=== PATIENT | female | born 1955 | race Caucasian/White ===

== ENCOUNTER 2016-08-30 11:37 | Day surgery (SDC) | payer BC ==
--- NOTE | ~2016-08-30 | EGD ---
EGD REPORT [facility] [address] [address] NAME: ALISON PEREZ : 53 STATUS : REG [facility] PAT#: [id number] AGE: 61 ADM/REG DATE : 08/30/16 MR#: [id number] REPORT SERV DATE: 08/30/16 DICTATED BY: ALICIA WOOD DATE: 08/30/16 REPORT STATUS : Draft TRANSCRIBED BY: [facility] DATE: 08/30/16 [facility] Patient Name: Alison Perez Date of : 1955 Attending MD: ALICIA WOOD MD Procedure Date No Time: 08/30/2016 Procedure: Upper GI endoscopy Indications: Dysphagia, Chest pain (non cardiac) Referring MD: Zeb Cobos MD, GEORGIA HANLEY III, MD, JOHN BOWER Medicines: Propofol per Anesthesia Complications: No immediate complications. Estimated blood loss: None. Procedure: Pre-Anesthesia Assessment: - After reviewing the risks and benefits, the patient was deemed in satisfactory condition to undergo the procedure. - Prior to the procedure, a History and Physical was performed, and patient medications and allergies were reviewed. The patient's tolerance of previous anesthesia was also reviewed. The risks and benefits of the procedure and the sedation options and risks were discussed with the patient. All questions were answered, and informed consent was obtained. Prior Anticoagulants: The patient has taken no previous anticoagulant or antiplatelet agents. ASA Grade Assessment: III - A patient with severe systemic disease. After reviewing the risks and benefits, the patient was deemed in satisfactory condition to undergo the procedure. After obtaining informed consent, the endoscope was passed under direct vision. Throughout the procedure, the patient's blood pressure, pulse, and oxygen saturations were monitored continuously. The GIF [id number] was introduced through the mouth, and advanced to the third part of duodenum. The upper GI endoscopy was accomplished without difficulty. The patient tolerated the procedure well. Findings: The examined esophagus was normal. The gastroesophageal junction was normal. A guidewire was placed and the scope was withdrawn. Dilation was performed with a Savary dilator with mild resistance at 48 Fr. Estimated blood loss: none. Diffuse moderate inflammation characterized by congestion (edema), erythema and granularity was found in the gastric antrum. Biopsies were taken with a cold forceps for histology. Estimated blood loss: none. EGD REPORT [address] [address] NAME: ALISON PEREZ : 53 STATUS : REG [facility]#: [id number] AGE: 61 ADM/REG DATE : 08/30/16 MR#: [id number] REPORT SERV DATE: 08/30/16 DICTATED BY: ALICIA WOOD DATE: 08/30/16 REPORT STATUS : Draft TRANSCRIBED BY: [facility] DATE: 08/30/16 Evidence of a Patrick fundoplication was found in the cardia. The anastomosis was characterized by healthy appearing mucosa. The examined duodenum was normal. Impression: - Normal esophagus. - Normal gastroesophageal junction. Dilated. - Chronic bile gastritis. Biopsied. - A Patrick fundoplication was found, anastomosis characterized by healthy appearing mucosa. - Normal examined duodenum. - Non-erosive esophageal reflux (NERD) disease present. Recommendation: - Discharge patient to home (ambulatory). - Resume previous diet. - Continue current medications. - Begin Nexium (esomeprazole) 40 mg daily before breakfast. - Repeat esophageal dilation as needed. - Patient has a contact number available for emergencies. The signs and symptoms of potential delayed complications were discussed with the patient. Return to normal activities tomorrow. Written discharge instructions were provided to the patient. Procedure Code(s): --- Professional --- 60957, Esophagogastroduodenoscopy, flexible, transoral; with insertion of guide wire followed by passage of dilator(s) through esophagus over guide wire 19074, Esophagogastroduodenoscopy, flexible, transoral; with biopsy, single or multiple Diagnosis Code(s): --- Professional --- K29.50, Unspecified chronic gastritis without bleeding K29.60, Other gastritis without bleeding Z98.89, Other specified postprocedural states K21.9, Gastro-esophageal reflux disease without esophagitis R13.10, Dysphagia, unspecified R07.89, Other chest pain CPT copyright 2013 [employer]. All rights reserved. The codes documented in this report are preliminary and upon ham stripper review may be revised to meet current compliance requirements. EGD REPORT [facility] [address] [place]. [address] NAME: ALISON PEREZ : [birth year] STATUS : REG [facility]#: [id number] AGE: 61 ADM/REG DATE : 08/30/16 MR#: [id number] REPORT SERV DATE: 08/30/16 DICTATED BY: ALICIA WOOD DATE: 08/30/16 REPORT STATUS : Draft TRANSCRIBED BY: [employer] DATE: 08/30/16 ALICIA WOOD MD 08/30/2016 2:05 PM This report has been signed electronically. Number of Addenda: 0 Note Initiated On: 08/30/2016 1:31 PM Scope Withdrawal Time 0 hours 0 minutes [address] [place], [place] [address] [place] [address]
[~2016-08-30 11:37] MED LIST: ADDERALL XR20 MG PO; AMRIX30 MG PO; CAT1 PO; COREG6 PO; COZAAR100 MG PO; CYANO1000T PO; DEMA10T PO; ENDOCET1 TA3 PO; GLUCPH PO; JUBLIA; K-TABS10 MEQ PO; KADIAN10 MG PO; KDUR10 PO; KLONO5 PO; L40 PO; LIPITOR40 PO; LOFIB160 PO; LYRICA100 MG PO; LYRICA150 MG PO; MAX25 PO; METANX PO; MOBIC7.5 PO; MSCONT15 PO; NUCYNTA50 MG PO; OXYCON40 PO; PAX20 PO; PERCOCET 10/3251 TAB PO; PERCOCET1 TA4 PO; PRAVACHOL40 MG PO; PRILO PO; PROTONIX PO; PROZAC PO; PROZAC40 MG PO; PULRESP.5 NAS; SINGULAIR1 PO; TESSALON200 MG PO; VAGIFEM25 MCG V; VIVELLE-DOT0.1 MG TOP; WELLXL150 PO; ZANTAC300 MG PO; ZITHROMAX500 MG PO
== END 2016-08-30 23:59 | disposition home health service (06) ==
LOC: DMU 11:37
PROVIDERS: Internal Medicine Gastroenterology
PROC: 0D748ZZ Dilation of Esophagogastric Junction, Via Natural or Artificial Opening Endoscopic (ICD-10-PCS; principal; 2016-08-30 13:00)
PROC: 0DB68ZX Excision of Stomach, Via Natural or Artificial Opening Endoscopic, Diagnostic (ICD-10-PCS; 2016-08-30 13:00)
DX: R13.10 Dysphagia, unspecified (principal); I10 Essential (primary) hypertension; E11.9 Type 2 diabetes mellitus without complications; G47.33 Obstructive sleep apnea (adult) (pediatric); E66.9 Obesity, unspecified; E78.00 Pure hypercholesterolemia, unspecified; K21.9 Gastro-esophageal reflux disease without esophagitis; F41.9 Anxiety disorder, unspecified; F90.9 Attention-deficit hyperactivity disorder, unspecified type; Z88.8 Allergy status to other drugs, medicaments and biological substances; F17.210 Nicotine dependence, cigarettes, uncomplicated; Z90.710 Acquired absence of both cervix and uterus; Z98.51 Tubal ligation status; Z98.890 Other specified postprocedural states
CPT/HCPCS: 82962; 88305